=== PATIENT | female | born 1965 | race Caucasian/White ===

== ENCOUNTER 2023-07-22 16:58 | Emergency (ER) | payer OTHER, SELFPAY ==
--- NOTE | ~2023-07-22 | XR_ITS ---
Left Hand Technique: PA, oblique, and lateral views were obtained. Clinical History: Pain Findings: No acute fracture or dislocation is seen. Osseous alignment is anatomic. There is mild dege nerative change of the third DIP joint. Soft tissues are unremarkable. Impression: No fracture or dislocation. Mild degenerative change of the third DIP joint. Reviewed, dictated and finalized at location . Impression: No fracture or dislocation. Mild degenerative change of the third DIP joint.
[2023-07-22 17:29] VITALS: BP 150/93; PULSE 85; RESP 18; TEMP 36.3; O2SAT 96
--- NOTE | 2023-07-22 18:15 | ED.UPPEXIN ---
HPI - Extremity Injury (Upper) General Chief Complaint: Extremity Injury, Upper Stated Complaint: finger injury Time Seen by Provider: 07/22/23 18:07 Source: patient and RN notes reviewed Mode of arrival: ambulatory Limitations: no limitations History of Present Illness HPI narrative: Patient presents today complaining of an injury to her left hand. She fell onto her outstretched hand approximately 6 hours prior to exam. She has been tingling to her fingertips, but is primarily having pain to her 3rd and 4th fingers. Currently rates her pain 6/10 and has been taking Advil with mild relief. Related Data Home Medications Medication Instructions Recorded Confirmed No Home Medications 07/22/23 07/22/23 Allergies Allergy/AdvReac Type Severity Reaction Status Date / Time No Known Allergies Allergy Verified 07/22/23 17:47 Review of Systems Review of Systems: CONSTITUTIONAL: Denies body aches, fever, chills, or sweats. EYES: Denies visual changes, redness, or discharge. ENT: Denies rhinorrhea, congestion, sore throat, or otalgia. CARDIOVASCULAR: Denies chest pain, palpitations, or edema. RESPIRATORY: Denies cough or dyspnea. GASTROINTESTINAL: Denies abdominal pain, nausea, vomiting, or diarrhea. GENITOURINARY: Denies dysuria or hematuria. SKIN: Denies rash, itching, or wounds. MUSCULOSKELETAL: Denies back pain, or myalgia.+ hand pain NEUROLOGIC: Denies headache, numbness, or weakness.+ tingling of fingers PSYCH: Denies depression or anxiety. PMFSH Comments At time of signature, I have reviewed and agree with nursing past medical, surgical, social and family history unless otherwise noted. Please see nursing chart for further information. There is no relevant family history pertinent to the presenting complaint Exam Narrative: GENERAL: Well-appearing, well-nourished, and in no acute distress. HEAD: Normocephalic, atraumatic. EYES: EOMI. No redness or drainage. Conjunctivae normal. ENT: Mucous membranes pink and moist. NECK: Normal AROM. CHEST: No respiratory distress. EXTREMITIES: Left 3rd finger: Moderate ecchymosis and mild localized edema just proximal to the fingernail with tenderness to palpation. Left 4th finger: Mild ecchymosis and moderate edema to the proximal phalanx with tenderness to this area. Patient has no additional tenderness to any other fingers or the entirety of the hand. Distal sensation intact in all 5 fingers. Capillary refill normal. Range of motion limited in the 3rd and 4th fingers due to pain. SKIN: Warm, dry, no rash. Capillary refill normal. Normal skin turgor. NEURO: No focal deficits. Alert and oriented x3. Gait steady. PSYCH: Normal affect. No signs of depression or anxiety. Course Course Level of Care: Express Care Visit Vital Signs Vital signs: Vital Signs Temperature 97.3 F L 07/22/23 17:29 Pulse Rate 85 07/22/23 17:29 Respiratory Rate 18 07/22/23 17:29 Blood Pressure 150/93 H 07/22/23 17:29 Pulse Oximetry 96 07/22/23 17:29 Oxygen Delivery Room Air 07/22/23 17:29 Temperature 97.3 F L 07/22/23 17:29 Pulse Rate 85 07/22/23 17:29 Respiratory Rate 18 07/22/23 17:29 Blood Pressure 150/93 H 07/22/23 17:29 Pulse Oximetry 96 07/22/23 17:29 Oxygen Delivery Room Air 07/22/23 17:29 Reviewed. Pt has been instructed to follow up with her PCP regarding her elevated blood pressure today. MDM - Extremity Injury (Upper) MDM Narrative Medical decision making narrative: X-rays negative. Offered patient a finger splint for the 3rd finger. She has declined. Discussed rest, ice, NSAIDs. No prescription medications indicated at this time.. Patient agrees with plan. Anticipatory guidance given. Differential Diagnosis Differential diagnosis: Likely finger sprain, fracture of hand and other (Finger fracture, contusion) Imaging Data Radiologist's impression: ITS Impressions Hand X-Ray 07/22/23 18:04 Impression:
== END 2023-07-22 18:30 | disposition home or self-care (01) ==
PROVIDERS: Emergency Provider Nurse Practitioner; PCP Family Medicine
DX: S60.032A Contusion of left middle finger without damage to nail, initial encounter (principal); S60.042A Contusion of left ring finger without damage to nail, initial encounter; X58.XXXA Exposure to other specified factors, initial encounter
CPT/HCPCS: 73130; 99203; G0463